=== PATIENT | male | born 1995 | race Caucasian/White ===

== ENCOUNTER 2018-11-07 04:35 | Observation (INO) ==
[2018-11-07] MEDS ORDERED: 0.9 % Sodium Chloride 1,000 ML IVC ONE ×2 (04:50→05:54)
[2018-11-07] MEDS ORDERED: Cefepime HCl 2,000 MG in Water for inj. (sterile) 20 ML 20 ML IVP ONE (04:50)
[2018-11-07] MEDS ORDERED: *HR* Nalbuphine 10 MG/ML AMPUL IV STA (05:01)
--- NOTE | 2018-11-07 05:02 | Emergency Department Note ---
Disposition Clinical Impression: Finger infection Fish bite wound Qualifiers: Encounter type: initial encounter Qualified Code(s): W56.51XA - Bitten by other fish, initial encounter Disposition: Admitted As Inpatient Condition: Good Referrals: NONE,PCP [Non-Partnered Physician] - Forms: ED Satisfaction Letter Time of Disposition: 05:57 Extremity Problem HPI - General Chief complaint: ED Extremity Problem,Nontraumatic Stated complaint: R finger red/swollen Time Seen by Provider: 11/07/18 04:42 Source: patient Limitations: no limitations Nursing Notes Reviewed: Yes Vital Signs Reviewed: Yes - History of Present Illness HPI Narrative: 23-year-old male presents from home with father bedside for evaluation of fever and infection to right index finger. Patient is right-hand dominant. Approximately 10 days ago he was fishing and was bitten by a catfish overlying the right PIP. He self manage with basic wound care. He noticed redness and swelling and presented to a primary care provider 5 days ago and is prescribed Bactrim which she has been taking as prescribed. He believed the finger is doing better until 1.5 days ago when he picked up a bucket which he believes may have put too much pressure on the right index finger. Since then, the pain and swelling has been progressively worsening. Early this morning, he awoke with a fever of 102 and notably worsening pain of his right index finger which now appeared swollen and red. PMH: None Daily medications: None with the exception of the prescribed Bactrim. ROS: Positive: Fever, right index trigger swelling and redness and pain with movement Negative: Nausea, vomiting, other injury, pain to other digits, pain with wrist flexion or thumb to finger opposition. Pt Subjective Complaint: extremity pain, extremity swelling Onset (ago): day(s) Consistency: constant Injury Location: right, upper extremity Pain Scale: 8 Quality: aching Radiation: proximal Improves with: nothing Worsens with: nothing Associated symptoms: Reports: fever, rash, change in appearance, swelling, redness. Denies: myalgias, arthralgias - Related Data Previous Rx's Medication Instructions Recorded Clindamycin [Cleocin] 150 mg PO Q6HR #28 capsule 06/04/17 Ibuprofen [Motrin] 600 mg PO Q6HR PRN #20 tab 06/04/17 Allergies Allergy/AdvReac Type Severity Reaction Status Date / Time Amoxicillin Allergy Hives Verified 11/07/18 04:45 All systems ED: reviewed and negative except as stated. Review of Systems: As Per HPI Past Medical History - Past Medical History Medical history: Reports: no medical history Psychiatric history: Reports: no psych history - Social History Smoking Status: Current every day smoker Smokeless Tobacco Status: No Alcohol use: Reports: rarely Drug use: Reports: none Physical Exam Vital Signs Reviewed General: Patient is alert, oriented, and in no acute distress. He appears nervous. Head: atraumatic, normocephalic Eye: normal appearance, PERRL, EOMI, no scleral icterus, no conjunctival injection ENT: mucous membranes moist, normal external ear exam Neck: normal inspection, trachea midline, full ROM Chest: normal inspection, symmetric chest rise Respiratory: Good respiratory effort. Bilateral breath sounds are clear without wheezing, crackles, or rhonchi. Cardiovascular: Tachycardic rate and regular rhythm. No clicks, rubs, gallops, or murmors. Normal heart sounds. Abdomen: Bowel sounds present normoactive. Abdomen is soft, nondistended, and nontender. No guarding or rebound. No organomegaly noted. Musculoskeletal: No pain to right index finger full extension, patient does not hold the finger in flexion in a position of comfort, there is tenderness most p rominent in the proximal phalanx with swelling and ecchymosis overlying the PIP joint. Skin: warm, dry, intact. Neuro: GCS 15. No focal neurologic deficits observed. Sensation light touch intact in right index fingertip. Psych: Patient's affect is appropriate for situation. - General Limitations: no limitations General appearance: alert, in no apparent distress Course Course Narrative: The infection appears to be isolated to the right PIP joint and proximal phalanx. It does not extend distally toward the nail or proximally across the MCP joint. Flexor tenosynovitis clinically unlikely. Patient states he does not like doctors and he feels nervous. He appears to calm during my discussion with him. I discussed my concerns and the need for lab work and imaging. Will begin empiric broad antibiotics with concern on Aleve infection from skin estrellita but also from freshwater estrellita. X-ray right index finger looking for possible foreign body of either catfish tooth versus waldemar. Patient asserts positive on intake via fever and tachycardia. X-ray finger shows soft tissue swelling with no radiopaque foreign body. Serum hematology shows leukocytosis to 15.2 Serum chemistry shows mild hypomagnesiumemia; patient is asymptomatic. We will hold on replacement. Patient received 2 L IV fluids. Empiric vancomycin and cefepime given his allergy to amoxicillin. Patient and father are uncertain of his reaction to amoxicillin. Tylenol for fever. I discussed the need for admission to the patient and father given his failure of appropriately chosen and appropriately dosed outpatient Bactrim. They agree. I discussed the above with the admitting hospitalist, Dr. Perera, who agrees to accept the patient for continued evaluation monitoring. Finger X-Ray 11/07/18 04:57 IMPRESSION: 2nd digit soft tissue swelling D/ / Kiarra Sullivan MD / Kiarra Sullivan MD Interpreting Provider: Kiarra Sullivan MD Vital Signs Temperature 101.7 F H 11/07/18 04:36 Pulse Rate 118 11/07/18 04:36 Respiratory Rate 20 11/07/18 04:36 Blood Pressure 115/80 11/07/18 04:36 O2 Sat by Pulse Oximetry 98 11/07/18 04:36 Temperature 101.7 F H 11/07/18 04:36 Pulse Rate 100 11/07/18 04:56 Respiratory Rate 20 11/07/18 04:56 Blood Pressure 102/58 11/07/18 04:56 O2 Sat by Pulse Oximetry 99 11/07/18 05:04 Oxygen Delivery Oxygen Delivery Room Air Extremity Problem, Nontraumati - Lab Data Result diagrams: 11/07/18 04:52 11/07/18 04:52 Lab Results 11/07/18 11/07/18 11/07/18 Range/Units 04:52 04:52 04:52 WBC 15.2 H (4.3-11.1) K/mcL RBC 4.65 (4.19-5.50) M/mcL Hgb 14.5 (12.9-16.9) g/dL Hct 41.1 (37.5-50.1) % MCV 88.4 (83.0-100.0) fL MCH 31.2 (28.0-33.3) pg MCHC 35.3 (31.6-35.5) g/dL RDW 11.7 (11.5-14.5) % Plt Count 181 (140-400) K/mcL MPV 10.4 (9.4-12.4) fL Immature Gran % 0.3 (0-4) % Seg Neutrophils % 75.9 % Lymphocytes % 15.3 % Monocytes % 8.1 % Eosinophils % 0.1 % Basophils % 0.3 % Neutrophils # 11.6 H (1.6-8.9) K/mcL Lymphocytes # 2.3 (0.6-4.6) K/mcL Monocytes # 1.2 (0.0-1.3) K/mcL Eosinophils # 0.0 (0.0-0.6) K/mcL Basophils # 0.0 (0.0-0.2) K/mcL Sodium 137 (136-145) mEq/L Potassium 3.9 (3.5-5.1) mEq/L Chloride 105 (98-107) mEq/L Carbon Dioxide 22 L (23-29) mEq/L BUN 14 (6-20) mg/dL Creatinine 0.96 (0.70-1.30) mg/dL Est GFR ( Amer) > 60 (> 60) Est GFR (Non-Af Amer) > 60 (> 60) BUN/Creatinine Ratio 15 (6-26) Glucose 114 H (70-105) mg/dL Calculated Osmolality 285 (280-300) Lactic Acid 1.0 (0.5-2.2) mmol/L Calcium 9.9 (8.6-10.3) mg/dL Magnesium 1.5 L (1.6-2.6) mg/dL Critical Care Time Critical Care Time: Yes Total Critical Care Time: 35 Attestation: Acute ascending cellulitis with bacteremia Attestation Statement - Attestation Attestation: Dr. Wheeler note:/ Attestation: Patient seen in conjunction with emergency medicine resident Dr. Perez. Pl ease see his charting for complete documentation. Spent [id number] time with the patient and I agree with the patient's treatment and disposition. Imaging results and CBC are reviewed. Catfish bite to the index finger about 10 days ago that had improved for 5 days and then become red and inflamed so he is placed on antibiotics or symptoms began but erythema and swelling returned yesterday with fever. He is able to passively extend the affected digit. Erythema extends tothe finger went on to the hand or proximally. No indication for emergent cervical consultation but patient will be admitted on IV antibiotics and if the hospitalist is appropriate additional consultations will be after initial evaluation.
[2018-11-07 05:14] LABS: Basophils % 0.3 %; Eosinophils % 0.1 %; Hematocrit 41.1 % (37.5-50.1); Hemoglobin 14.5 g/dL (12.9-16.9); Immature Granulocytes % 0.3 % (0-4); Lymphocytes # 2.3 K/mcL (0.6-4.6); Lymphocytes % 15.3 %; Mean Corpuscular HGB Conc 35.3 g/dL (31.6-35.5); Mean Corpuscular Hemoglobin 31.2 pg (28.0-33.3); Mean Corpuscular Volume 88.4 fL (83.0-100.0); Mean Platelet Volume 10.4 fL (9.4-12.4); Monocytes # 1.2 K/mcL (0.0-1.3); Monocytes % 8.1 %; Neutrophils # 11.6 K/mcL (1.6-8.9); Platelet Count 181 K/mcL (140-400); Red Blood Count 4.65 M/mcL (4.19-5.50); Red Cell Distribution Width 11.7 % (11.5-14.5); Segmented Neutrophils % 75.9 %
[2018-11-07 05:26] LABS: BUN/Creatinine Ratio 15 (6-26); Blood Urea Nitrogen 14 mg/dL (6-20); Calcium 9.9 mg/dL (8.6-10.3); Carbon Dioxide 22 mEq/L (23-29); Chloride 105 mEq/L (98-107); Glucose 114 mg/dL (70-105); Magnesium 1.5 mg/dL (1.6-2.6); Osmolality,Calculated 285 (280-300); Potassium 3.9 mEq/L (3.5-5.1); Sodium 137 mEq/L (136-145); eGFR For Non-African Americans > 60 (> 60)
--- NOTE | 2018-11-07 07:57 | Internal Med History&Physical ---
Date of Encounter: 11/07/18 Time of Encounter: 08:00 Internal Medicine - H&P: HPI History of present illness: 23-year-old male presents from home for evaluation of fever and swelling, erythema and tenderness of right index finger. Patient is right-hand dominant. The patient stated that about 10 days ago he was fishing and he was bitten by a catfish. Later he noticed progressive worsening of swelling and erythema of the right index. He was evaluated by his primary care physician hold prescribed oral antibiotic as outpatient was no significant improvement. The lesion was the patient was evaluated by the ER staff and was started on empiric IV antibiotics. the patient will be admitted for further evaluation and management Past Med Surg Social Fam HX - Past Medical History Medical history: no medical history Psychiatric history: no psych history - Social History Smoking Status: Current every day smoker Packs per day: 1 Smokeless Tobacco Status: Yes Alcohol use: occasionally Drug use: none Internal Medicine - H&P: Meds Acetaminophen [Tylenol] 650 mg PO Q6HR PRN tablet 11/09/18 [Rx] Cephalexin [Keflex] 500 mg PO QID 8 Days #32 capsule 11/09/18 [Rx] Allergy/AdvReac Type Severity Reaction Status Date / Time Amoxicillin Allergy Hives Verified 11/07/18 04:45 All Systems PM: A 10-system review of systems was performed and is negative for pertinent findings except as documented above in the HPI. - Constitutional Vitals: Temp Pulse Resp BP Pulse Ox 99.7 F H 91 16 119/63 96 11/07/18 06:46 11/07/18 06:46 11/07/18 06:46 11/07/18 06:46 11/07/18 06:46 Exam: As below - Head Head exam: Present: atraumatic, normocephalic - Eye Eye exam: Present: PERRL, conjuntiva pink, sclera anicteric Pupils: Present: PERRL - Neck Neck exam general surgery: Present: supple, trachea midline. Absent: lymphadenopathy - Respiratory Respiratory exam: Present: CTAB. Absent: accessory muscle use, rales, rhonchi, wheezes - Cardiovascular Cardiovascular exam: Present: RRR, +S1, +S2. Absent: diastolic murmur, gallop, rubs, systolic murmur - GI/Abdominal GI/Abdominal exam: Present: normal bowel sounds, soft, no peritoneal signs. Absent: distended, tenderness - Extremities Exam Extremities exam: Present: warm, radial pulses palpable and symmetrical. Absent: calf tenderness, cyanotic, pedal edema Additional comments: erythema, swelling and tenderness of the right index finger was noted - Neurological Exam Neurological exam: Present: CN II-XII intact, oriented X3, no focal deficits. Absent: pronater drift, facial droop, speech deficit - Skin Skin exam: Present: dry, intact Internal Med - H&P Results - Labs CBC & Chem 7: 11/08/18 06:46 11/08/18 06:46 Labs: Short CBC 11/07/18 Range/Units 04:52 WBC 15.2 H (4.3-11.1) K/mcL Hgb 14.5 (12.9-16.9) g/dL Hct 41.1 (37.5-50.1) % Plt Count 181 (140-400) K/mcL Neutrophils # 11.6 H (1.6-8.9) K/mcL BMP 11/07/18 04:52 Sodium 137 Potassium 3.9 Chloride 105 Carbon Dioxide 22 L BUN 14 Creatinine 0.96 Glucose 114 H Calcium 9.9 - Impressions ITS Impressions Finger X-Ray 11/07/18 04:57 IMPRESSION: 2nd digit soft tissue swelling D/ / Kiarra Sullivan MD / Kiarra Sullivan MD Interpreting Provider: Kiarra Sullivan MD - Assessment and Plan (1) Finger infection Status: Acute Assessment and plan: we will discharge the patient on IV antibiotics, there is no evidence of fluid collections or abscess formation,. We will consult surgery to evaluate the patient and decide surgical intervention is needed (2) DVT prophylaxis Status: Acute Assessment and plan: the patient is ambulatory - Time Spent With Patient Total time spent is greater than 50% in coordination of care (as documented) at patient's floor/unit and/or counseling patient:
[2018-11-07] MEDS ORDERED: Naloxone 0.4 MG/ML INJ IVP PRN (09:46)
[2018-11-07] MEDS ORDERED: Acetaminophen 325 MG TABLET PO PRN (09:51)
[2018-11-07] MEDS ORDERED: *HR* HYDROcodone/Acet 5/325 mg TABLET PO PRN (09:51)
[2018-11-07] MEDS ORDERED: Ondansetron 4 MG/2 ML VIAL IVP PRN (09:51)
[2018-11-07] MEDS: 0.9 % Sodium Chloride 1,000 ML IVC SCH ×2 (11:21→22:23)
--- NOTE | 2018-11-07 14:42 | AcuteCare Surgery Consult Note ---
Date of Encounter: 11/07/18 Time of Encounter: 14:45 Assessment and Plan (1) Finger infection Current Visit: Yes Status: Acute Cellulitis without abscess. Initial improvement with IV abx. If an abscess consolidates or if edema and erythema does not continue to improve expeditiuosly with IV abx then I would recommend ortho or hand consult for evaluation. Otherwise, at this time, no surgery for I&D of finger is recommended. Continue IV abx aggressively. Surgery signing off. (2) Fish bite wound Current Visit: Yes Status: Acute Qualifiers: Encounter type: initial encounter Qualified Code(s): W56.51XA - Bitten by other fish, initial encounter History of Present Illness Consult date: 11/07/18 Reason for consult: other (finger cellulitis) Requesting physician: Joanne Elmore History of present illness: This 23 y/o male presents to [facility] after getting bitten by a catfish on his right first finger. He reports that initially it had improved to the point that he thought it had resolved with PO abx from PCP. Then the pain, swelling and redness recurred. He reports initial improvement in ROM since being on abx. He denies fever. Past Med Surg Social Fam HX - Past Medical History Medical history: no medical history Psychiatric history: no psych history - Social History Smoking Status: Current every day smoker Packs per day: 1 Smokeless Tobacco Status: Yes Alcohol use: occasionally Drug use: none Medications and Allergies Clindamycin [Cleocin] 150 mg PO Q6HR #28 capsule 06/04/17 [Rx] Ibuprofen [Motrin] 600 mg PO Q6HR PRN #20 tab 06/04/17 [Rx] Allergy/AdvReac Type Severity Reaction Status Date / Time Amoxicillin Allergy Hives Verified 11/07/18 04:45 Review of Systems All systems PM: The remainder of the systems were reviewed and are negative - Constitutional as per HPI, no anorexia, no chills, no fever(s), no night sweats - EENT Nose, mouth and throat: no dizziness, no dry mouth, no mouth pain, no nasal congestion, no sinus pain, no sinus pressure, no sore throat - Cardiovascular no chest pain, no diaphoresis, no dyspnea, no edema - Respiratory no cough, no dyspnea, no wheezing - Gastrointestinal no abdominal pain, no constipation, no diarrhea, no nausea, no vomiting - Genitourinary no dysuria, no flank pain, no urinary frequency - Musculoskeletal joint swelling, limited range of motion (right first finger), no back pain, no n evi pain - Integumentary erythema, swelling (right first finger cellulitis), no dry skin - Neurological no confusion, no dizziness, no focal weakness, no weakness - Psychiatric anxiety, no depression - Endocrine no fatigue - Hematologic/Lymphatic no easy bleeding, no easy bruising General Surgery Exam Initial Vital Signs Temp Pulse Resp BP Pulse Ox 101.7 F H 118 20 115/80 98 11/07/18 04:36 11/07/18 04:36 11/07/18 04:36 11/07/18 04:36 11/07/18 04:36 - General physical appearance well developed, well nourished, no distress - Eyes PERRL, normal ocular movement - ENT no congestion, dry mucosa. negative: nasal discharge - Neck no lymphadectomy, no venous distension - Respiratory normal respiratory effort, clear to auscultation - Cardiovascular Cardiovascular exam: Present: RRR. Absent: murmurs - Abdomen Abdomen general surgery: Present: bowel sounds present, soft, non tender - Integumentary Integumentary general surgery: Present: other (right first finger with cellulitis of entire digit. ROM is decrease but, improving. No focal abscess, fluctuance or drainage of purulent fluid. ) - Neurologic Present: CN 2-12 grossly intact, normal coordination - Musculoskeletal Present: normal posture - Psychiatric Psychiatric general surgery: Present: A&Ox3, appropriate Exam Initial Vital Signs Temp Pulse Resp BP Pulse Ox 101.7 F H 118 20 115/80 98 11/07/18 04:36 11/07/18 04:36 11/07/18 04:36 11/07/18 04:36 11/07/18 04:36 Results - Labs 11/07/18 04:52 11/07/18 04:52 Abnormal lab results WBC 15.2 K/mcL (4.3-11.1) H 11/07/18 04:52 11.6 K/mcL (1.6-8.9) H 11/07/18 04:52 Carbon Dioxide 22 mEq/L (23-29) L 11/07/18 04:52 Glucose 114 mg/dL (70-105) H 11/07/18 04:52 Magnesium 1.5 mg/dL (1.6-2.6) L 11/07/18 04:52 Diabetes panel 11/07/18 Range/Units 04:52 Sodium 137 (136-145) mEq/L Potassium 3.9 (3.5-5.1) mEq/L Chloride 105 (98-107) mEq/L Carbon Dioxide 22 L (23-29) mEq/L BUN 14 (6-20) mg/dL Creatinine 0.96 (0.70-1.30) mg/dL Glucose 114 H (70-105) mg/dL Calcium 9.9 (8.6-10.3) mg/dL Calcium panel 11/07/18 Range/Units 04:52 Calcium 9.9 (8.6-10.3) mg/dL Pituitary panel 11/07/18 Range/Units 04:52 Sodium 137 (136-145) mEq/L Potassium 3.9 (3.5-5.1) mEq/L Chloride 105 (98-107) mEq/L Carbon Dioxide 22 L (23-29) mEq/L BUN 14 (6-20) mg/dL Creatinine 0.96 (0.70-1.30) mg/dL Glucose 114 H (70-105) mg/dL Calcium 9.9 (8.6-10.3) mg/dL Adrenal panel 11/07/18 Range/Units 04:52 Sodium 137 (136-145) mEq/L Potassium 3.9 (3.5-5.1) mEq/L Chloride 105 (98-107) mEq/L Carbon Dioxide 22 L (23-29) mEq/L BUN 14 (6-20) mg/dL Creatinine 0.96 (0.70-1.30) mg/dL Glucose 114 H (70-105) mg/dL Calcium 9.9 (8.6-10.3) mg/dL All other labs normal. - Imaging Additional studies: right hand x-ray reveals Soft tissue swelling about the 2nd digit most prominent the PIP joint. No acute fracture. No radiopaque foreign body. Consult Discharge Plan - Plan Referrals: Ondina Cabral, CNA [facility] [Primary Care Provider] -
[2018-11-07] MEDS ORDERED: *HR* Morphine 2 MG/ML SYRINGE IVP PRN (16:08)
[2018-11-07] MEDS ORDERED: Vancomycin (wt based) 1,000 MG VIAL IVPB SCH (17:00)
[2018-11-07] MEDS: *HR* Morphine 2 MG/ML SYRINGE IVP PRN ×2 (17:25→22:27)
[2018-11-07] MEDS: Cefepime HCl 2,000 MG in Water for inj. (sterile) 20 ML 20 ML IVP SCH (17:26)
[2018-11-07] MEDS: *HR* OxyCODONE Immed Rel 5 MG TABLET PO PRN (20:02)
--- NOTE | 2018-11-07 23:06 | Electrocardiograph Report ---
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
[2018-11-08] MEDS: Cefepime HCl 2,000 MG in Water for inj. (sterile) 20 ML 20 ML IVP SCH ×2 (06:08→18:04)
[2018-11-08] MEDS: *HR* OxyCODONE Immed Rel 5 MG TABLET PO PRN ×2 (06:26→13:34)
[2018-11-08 08:02] LABS: Basophils % 0.4 %; Eosinophils # 0.1 K/mcL (0.0-0.6); Eosinophils % 1.2 %; Hematocrit 38.1 % (37.5-50.1); Hemoglobin 13.1 g/dL (12.9-16.9); Immature Granulocytes % 0.2 % (0-4); Lymphocytes % 43.7 %; Mean Corpuscular HGB Conc 34.4 g/dL (31.6-35.5); Mean Corpuscular Hemoglobin 31.3 pg (28.0-33.3); Mean Corpuscular Volume 91.1 fL (83.0-100.0); Mean Platelet Volume 11.1 fL (9.4-12.4); Monocytes # 0.6 K/mcL (0.0-1.3); Monocytes % 11.9 %; Neutrophils # 2.1 K/mcL (1.6-8.9); Platelet Count 129 K/mcL (140-400); Red Blood Count 4.18 M/mcL (4.19-5.50); Red Cell Distribution Width 11.8 % (11.5-14.5); Segmented Neutrophils % 42.6 %
[2018-11-08 08:15] LABS: Lymphocytes # 2.1 K/mcL (0.6-4.6)
--- NOTE | 2018-11-08 08:46 | Internal Med Progress Note ---
<Tera Polk - Last Filed: 11/08/18 14:54> Hospitalist Progress Note - Encounter Date of Encounter: 11/08/18 Time of Encounter: 10:05 - Subjective Interval History: Patient is resting comfortably in bed at time of examination. He says that his finger is feeling significantly better than it was previously. The infection s eems to have gone down quite a bit. He said yesterday it was up to the level of his PIP however it now seems to have moved to his intermediate joint. He has no acute complaints at this time. - Exam Vitals: Temp Pulse Resp BP Pulse Ox 98.2 F 92 18 106/57 98 11/08/18 06:37 11/08/18 06:37 11/08/18 06:37 11/08/18 06:37 11/08/18 06:37 Exam: Gen: Vitals noted. No acute distress. MSK: right second digit edema and erythema present without obvious tophi or pu rulent drainage. AROM intact. Extremities: no BLE edema, nontender calf, no cyanosis or clubbing Skin: With exception of digit listed above, Normal temperature, turgor and texture; no rash, ulcers or subcutaneous nodules Neuro: moves all extremities, no focal deficits. Psych: Appropriate mood and behavior. A&Ox3 - Assessment and Plan (1) Finger infection Current Visit: Yes Status: Acute Assessment and Plan: Cellulitis infection of second right phalynx, improved ROM has improved, as has the patient's pain Suspect likely strep infection given that patient failed Outpt Bactrim and imp roved on Cefepime + Vanc, however cultures pending Likely to DC Vanc tomorrow, D/c on keflex or augmentin. (2) DVT prophylaxis Current Visit: Yes Status: Acute Assessment and Plan: the patient is ambulatory - Time Spent with Patient Total time spent is greater than 50% in coordination of care (as documented) at patient's floor/unit and/or counseling patient: Plan of Care Discussed with: patient Internal Medicine: Result - Labs CBC & Chem 7: 11/08/18 06:46 11/08/18 06:46 Labs: Short CBC 11/08/18 Range/Units 06:46 WBC 4.9 D (4.3-11.1) K/mcL Hgb 13.1 (12.9-16.9) g/dL Hct 38.1 (37.5-50.1) % Plt Count 129 L (140-400) K/mcL Neutrophils # 2.1 (1.6-8.9) K/mcL Cardiac Enzymes 11/07/18 Range/Units 04:52 Troponin I < 0.03 (< 0.04) ng/mL Consult Discharge Plan - Plan Referrals: Ondina Cabral, C[employer]ISHING [employer]PERVISOR [Primary Care Provider] - <Tejas Trinh - Last Filed: 11/08/18 16:38> Hospitalist Progress Note - Encounter Date of Encounter: 11/08/18 Internal Medicine: Result - Labs CBC & Chem 7: 11/08/18 06:46 11/08/18 06:46 - Attending Attestation Patient seen and examined independently, including review of objective data including labs. I agree with plan of care as documented above by the resident with the following comments: Uncomplicated finger cellulitis on IV vanc/cefepime since failed PO bactrim. GenSurg evaluated, no need for I&D. Currently improving, thus continue IV abx for now.
[2018-11-08 08:51] LABS: Alanine Aminotransferase 7 Units/L (7-52); Albumin 3.7 g/dL (3.5-5.7); Albumin/Globulin Ratio 1.5 (1.1-2.2); Alkaline Phosphatase 42 Units/L (34-104); Aspartate Amino Transferase 12 Units/L (13-39); BUN/Creatinine Ratio 11 (6-26); Bilirubin,Total 0.6 mg/dL (0.3-1.0); Blood Urea Nitrogen 8 mg/dL (6-20); Calcium 8.7 mg/dL (8.6-10.3); Carbon Dioxide 25 mEq/L (23-29); Chloride 107 mEq/L (98-107); Chol/HDL Ratio 2.2 (0-4.9); Cholesterol 104 mg/dL (< 200); Globulin 2.4 g/dL (2.4-3.5); Glucose 97 mg/dL (70-105); HDL Cholesterol 47 mg/dL (40-59); LDL Cholesterol,Calculated 43 mg/dL (0-99); Magnesium 1.8 mg/dL (1.6-2.6); Osmolality,Calculated 284 (280-300); Phosphorous 2.7 mg/dL (2.7-4.5); Sodium 138 mEq/L (136-145); Total Protein 6.1 g/dL (6.4-8.9); Triglycerides 68 mg/dL (< 150); eGFR For Non-African Americans > 60 (> 60)
[2018-11-08 08:56] LABS: INR 1.1; Prothrombin Time 12.6 Seconds (9.4-12.1)
[2018-11-08 08:58] LABS: Activated Partial Thrombo Time 26.5 Seconds (26.0-36.0)
[2018-11-08] MEDS: *HR* Morphine 2 MG/ML SYRINGE IVP PRN ×2 (10:02→16:18)
[2018-11-09] MEDS ORDERED: Melatonin 3 MG TABLET PO PRN (00:55)
[2018-11-09] MEDS: Cefepime HCl 2,000 MG in Water for inj. (sterile) 20 ML 20 ML IVP SCH (05:58)
[2018-11-09 07:33] VITALS: BP 114/73
--- NOTE | 2018-11-09 07:54 | Discharge Summary ---
<Tera Polk - Last Filed: 11/09/18 10:49> - NOTES TO OUTPATIENT PROVIDER Notes to Outpatient Provider: Presented with severe non-purulent cellulitis, failed out-pt bactrim. Started on cefepime + vanc, improved. DC on augmentin. Orders not resulted at time of discharge: Pending orders 11/07/18 04:58 Culture,Blood [BC] Stat Date of Encounter: 11/09/18 Time of Encounter: 08:10 - Discharge Diagnosis (1) Finger infection Priority: Primary Status: Acute (2) Fish bite wound Priority: Secondary Status: Acute Qualifiers: Encounter type: initial encounter Qualified Code(s): W56.51XA - Bitten by other fish, initial encounter Hospital course: Mr. Ram is a 23 year old male with no significant medical history who presented to the hospital due to swelling and edema of the second digit of his right hand. The patient apparently suffered a fish bite wound to his finger about 10 days ago while fishing and has developed redness, swelling, significant pain up to the level of his proximal carpometacarpal joint. The patient was initially started on Bactrim as an outpatient however failed this therapy. He was seen and evaluated by surgery who recommended continuing IV antibiotics and, if necessary, evaluation by orthopedic or specifically a hand surgeon. He was started on IV cefepime and vancomycin and showed rapid improvement in erythema, edema, and function. Patient had negative cultures x48hr. Vanc trough demonstrated nontherapeutic levels, and given that he failed outpatient bactrim it's significantly more likely that the patient has strep infection. Will discharge on augmentin for total of 10day course. Patient to follow-up with PCP. Discharge discussed with: patient, nurse - Time Spent with Patient Total time spent providing and/or coordinating discharge services: - Discharge Medications Prescriptions: New Acetaminophen [Tylenol] 650 mg PO Q6HR PRN tablet PRN Reason: Mild Pain/Fever Cephalexin [Keflex] 500 mg PO QID 8 Days #32 capsule Discontinued Sulfamethoxazole/Trimeth DS [Bactrim Ds] 1 tab PO BID Home Medications: Acetaminophen [Tylenol] 650 mg PO Q6HR PRN tablet 11/09/18 [Rx] Cephalexin [Keflex] 500 mg PO QID 8 Days #32 capsule 11/09/18 [Rx] Allergies/Adverse Reactions: Allergy/AdvReac Type Severity Reaction Status Date / Time Amoxicillin Allergy Hives Verified 11/07/18 04:45 Date of admission: 11/07/18 05:59 Primary care physician: Ondina Cabral CNP Consults: 11/07/18 12:50 Consult to Surgery [CONS] Routine Consulting Provider: Acute Care Surgery Reason for Consult: Finger celulitis Time Notified: 12:52 Call Completed: Yes Discharging clinician: Tera Polk Anticipated date of discharge: 11/09/18 - Constitutional Vitals: Temp Pulse Resp BP Pulse Ox 98.0 F 63 20 114/73 98 11/09/18 07:32 11/09/18 07:32 11/09/18 07:32 11/09/18 07:32 11/09/18 07:32 Exam: Gen: Vitals noted. No acute distress. Eyes: anicteric sclerae, moist conjunctivae; no lid-lag; Pupils equal and reactive to light HENT: Atraumatic; oropharynx clear with moist mucous membranes and no mucosal ulcerations; normal hard and soft palate Neck: Trachea midline; supple, no thyromegaly or lymphadenopathy Cardiac: RRR, no murmur, +S1/S2 Pulmonary: CTA bilaterally, no wheezes, rales or rhonchi, equal chest expansion Abdomen: soft, nontender, no guarding. No masses or hepatosplenomegaly MSK: right second digit edema and erythema present but substantially improved from prior without obvious tophi or purulent drainage. AROM intact. Extremities: no BLE edema, nontender calf, no cyanosis or clubbing Skin: With exception of digit listed above, Normal temperature, turgor and texture; no rash, ulcers or subcutaneous nodules Neuro: moves all extremities, no focal deficits. Psych: Appropriate mood and behavior. A&Ox3 - Patient Status Disposition: Home, Self-Care Condition: Good Functional capacity at discharge: independent ambulation Overall status at discharge: patient is back to baseline - Discharge Instructions Follow Up With: Ondina Cabral CNP [Primary Care Provider] - 11/16/18 11:00 am Additional Instructions: Follow-up with PCP in 5-10 days. Continue to monitor finger indepently. Clean daily with soap and water. If you find that the redness or swelling is worsening, contact your doctor immediately. Do not pop blisters that may form on the skin. If the finger begins to express pus or other material, contact your doctor. Take Augmentin twice a day with meals for 8 days. - Diet and Activity Activity: increase activity as tolerated Diet: advance to your usual diet <ZiggyTejas Isaac - Last Filed: 11/09/18 12:10> Date of Encounter: 11/09/18 Date of admission: 11/07/18 05:59 Primary care physician: Ondina Cabral CNP Consults: 11/07/18 12:50 Consult to Surgery [CONS] Routine Consulting Provider: Acute Care Surgery Reason for Consult: Finger celulitis Time Notified: 12:52 Call Completed: Yes - Attending Attestation Patient seen and examined. I agree with the discharge plan as documented above by the resident with the following addendum: Pt has cellulitis without abscess of R index finger which failed to improve on outpatient Bactrim. Inpatient had rapid improvement with Cefepime and Vanc; however vanc trough very low, and GenSurg unable to appreciate any induration or drainable abscess, and with failed Bactrim trial, all suggesting against MRSA and favoring strep. Due to Amoxicillin allergy, pt will be discharged on Keflex 500 q6h to complete 10 day course, last dose 11/16/2018.
[2018-11-09] MEDS ORDERED: Aminoglycoside Consult 1 EACH MC ONE (13:01)
== END 2018-11-09 13:02 | disposition home or self-care (01) ==
LOC: 3NENU 04:35 → EMEROOARM 04:35 → SUATTDRO 05:59 → 3NENU 06:36
PROVIDERS: ADMIT Internal Medicine; ATTEND Internal Medicine